=== PATIENT | female | born 1935 | race African-American/Black ===

== ENCOUNTER → 2016-06-27 | Outpatient (CLI) | payer MEDICARE, OTHER ==
[~2016-06-27] MED LIST: ACET500C4 PO; ASPI-556 PO; CALC1TAB15 PO; HYDR12.530 PO; LOSA25TA21 PO; MULT-578 PO; NITR0.3T SL; ROSU5TAB3 PO
== END | disposition home or self-care (01) ==
LOC: RADPV 14:48
PROVIDERS: ATTEND Orthopaedic Surgery
DX: M11.262 Other chondrocalcinosis, left knee (principal); M11.261 Other chondrocalcinosis, right knee; M25.762 Osteophyte, left knee

== ENCOUNTER → 2017-07-22 | Outpatient (CLI) | payer MEDICARE, OTHER ==
[~2017-07-22] VITALS: Ht 152.4 cm; Wt 63.0 kg
[~2017-07-22] MED LIST changes: +LEDI1TAB PO; +OMEP20 PO; +ROSU5TAB PO; -ROSU5TAB3 PO
[2017-07-22 10:56] VITALS: BP 139/88
== END | disposition home or self-care (01) ==
LOC: SRCNTR 10:31
PROVIDERS: ATTEND Internal Medicine Cardiovascular Disease
DX: I11.9 Hypertensive heart disease without heart failure (principal); I25.10 Atherosclerotic heart disease of native coronary artery without angina pectoris; E78.5 Hyperlipidemia, unspecified; Z86.19 Personal history of other infectious and parasitic diseases; Q89.3 Situs inversus; Z98.61 Coronary angioplasty status
CPT/HCPCS: G0463